=== PATIENT | female | born 1950 | race Caucasian/White ===

== ENCOUNTER → 2016-07-21 | Outpatient (CLI) | payer MEDICARE ==
--- NOTE | 2016-07-22 17:32 | EKG ---
Date Performed: 07/21/2016 Time Performed: 16:20:43 PTAGE: 66 years EKG: Sinus rhythm POSSIBLE RIGHT VENTRICULAR CONDUCTION DELAY BORDERLINE ECG NO PREVIOUS TRACING DOCTOR: Jose Stern Interpretating Date/Time 07/22/2016 17:29:23
== END ==
LOC: CCAV 15:50
PROVIDERS: ATTEND Pediatrics
DX: Z01.810 Encounter for preprocedural cardiovascular examination (principal)
CPT/HCPCS: 93005

== ENCOUNTER → 2016-08-02 | Day surgery (SDC) | payer MEDICARE ==
[~2016-08-02] MED LIST: HYDROmorphone HCL PF 2 MG/ML VIAL ONE; LACTATED RINGER'S 1000 ML INJ 1,000 ML ONE; MIDAZOLAM HCL 2 MG/2 ML VIAL ONE; ONDANSETRON HCL 4 MG/2 ML VIAL IV PUSH ONE; PROPOFOL 200 MG/20 ML AMP IV ONE; TRIAMCINOLONE ACETONIDE 40 MG/ML VIAL ONE; ceFAZolin INJ 1,000 MG VIAL ONE
--- NOTE | 2016-08-02 14:12 | TN ---
cc: LUIS GODOY M.D. DATE OF SURGERY: August 02, 2016 PREOPERATIVE DIAGNOSIS Right knee internal derangement. POSTOPERATIVE DIAGNOSIS Right knee medial meniscus tear; moderately severe OA, chondromalacia medial compartment. SURGEON Jordy Godoy MD MOWER SHARPENER GABY Marquez PROCEDURE Right knee arthroscopic surgery - subtotal medial meniscectomy. SPECIMEN None. ESTIMATED BLOOD LOSS None. COMPLICATIONS None. ANESTHESIA General. DRAIN None. TOURNIQUET TIME 11 minutes at 250 mmHg. CONDITION Stable. PLAN OF ACTIVITY Per orders. PROCEDURE My promotions assistant GABY Marquez was present for the entire surgical case. She was medically necessary for the entire case because of the complexity of the case and to facilitate the performance of the procedure. The ORDNANCE ENGINEERING TECHNICIAN at the back table was not a skill set for this case to manipulate the instruments, e.g., the arthroscopy, arthroscopic shaver and rongeurs. The patient was brought in the operating room, had satisfactory general endotracheal anesthesia by Dr. Carter, Department of Anesthesia. The right lower extremity was prepped and draped in usual sterile manner. The extremity was exsanguinated by [place] wrap. The tourniquet was inflated to 250 mmHg. Routine anterolateral and anterior medial portals were made. Introduction of the arthroscopic instruments were performed and the knee was inflated with sterile Ringer's lactated solution. Patellofemoral compartment showed no evidence of any significant chondromalacia. The patient was found to have multiple areas of cartilaginous loose bodies in the suprapatellar pouch. These were removed using the arthroscope. The lateral compartment showed no evidence of any meniscal injuries. The lateral compartment also was within normal limits. Medial compartment showed degenerative torn meniscus medially and posteriorly. Subtotal medial meniscectomy was performed. The medial femoral condyle showed multiple areas of exposed bone compatible with moderately severe chondromalacia involving the medial femoral condyle. Subtotal meniscectomy was performed using different types of meniscal rongeurs. A subtotal meniscectomy was performed. Chondroplasty with shaving the articular surface was also performed. The area was irrigated with copious amounts of Ringer's lactated solution. The wound itself was dry. Arthroscopic instruments were removed. The knee was injected with 1 cc of Kenalog 40. 3-0 Nylon was used to close the incision. The tourniquet was deflated. The wound was dry. The patient tolerated the procedure well and arrived in the recovery room in stable and satisfactory condition. MD COLIN Bailon/ABDI /1:33 PM /1:53 PM
== END | disposition home or self-care (01) ==
LOC: ESDC 11:17 → EDUNIT# 12:30
PROVIDERS: ATTEND Orthopaedic Surgery Orthopaedic Surgery of the Spine
DX: S83.241A Other tear of medial meniscus, current injury, right knee, initial encounter (principal); M17.11 Unilateral primary osteoarthritis, right knee; M94.261 Chondromalacia, right knee
CPT/HCPCS: 01400; 29881; J0690; J1170; J2250; J2405; J3010; J3301; J7120